=== PATIENT | male | born 1970 | race Caucasian/White ===

== ENCOUNTER → 2018-11-23 | Outpatient (CLI) | payer BC ==
--- NOTE | 2018-11-23 16:39 | KCIC ---
CHEST PA LATERAL History: Palpable left chest abnormality for 2 years. No comparison is available FINDINGS: Skin marker placed at the area of concern at the anterior left lower chest upper abdomen. Thoracolumbar scoliosis. Heart size not enlarged. No evidence of pneumothorax. No infiltrate or pleural effusion is seen. Mild dense nodularity in the right lung base likely granulomatous. Bones appear grossly intact. IMPRESSION: No definite acute findings. The area of concern is not well evaluated by chest x-ray, ultrasound or CT could be of benefit at the area of concern. Electronically signed by: Woody Huerta MD (11/23/2018 4:36 PM) [id number]
== END | disposition home or self-care (01) ==
LOC: KCIC 12:48
PROVIDERS: ATTEND Family Medicine
DX: M41.85 Other forms of scoliosis, thoracolumbar region (principal); R91.8 Other nonspecific abnormal finding of lung field
CPT/HCPCS: 71046